=== PATIENT | male | born 2000 | race Caucasian/White ===

== ENCOUNTER 2023-05-09 20:42 | Emergency (ER) | payer SELFPAY | END 2023-05-09 22:17 | disposition home or self-care (01) | LOC: MW.ED 20:42 | DX: T40.411A Poisoning by fentanyl or fentanyl analogs, accidental (unintentional), initial encounter (principal); Z77.098 Contact with and (suspected) exposure to other hazardous, chiefly nonmedicinal, chemicals; Z72.0 Tobacco use | CPT/HCPCS: 93005; 93010; 99283 ==